=== PATIENT | female | born 2005 | race Caucasian/White ===

== ENCOUNTER 2023-10-29 13:58 | Emergency (ER) | payer OTHER ==
[~2023-10-29] VITALS: Ht 167.6 cm; Wt 56.7 kg
[2023-10-29] MEDS ORDERED: SODIUM POLYSTYRENE SULFONATE 15 GM/60 ML BOT PO ONE (14:20)
[2023-10-29] MEDS ORDERED: LACTULOSE 20 GM/30 ML UDC PO ONE (14:20)
[2023-10-29] MEDS ORDERED: COLACE 2-IN-11 EACH PO (14:23)
== END 2023-10-29 15:19 | disposition home or self-care (01) ==
LOC: ED 13:58
DX: K59.00 Constipation, unspecified (principal); Z98.890 Other specified postprocedural states